=== PATIENT | male | born 1970 | race Caucasian/White ===

== ENCOUNTER 2018-02-07 20:46 | Inpatient (IN) | payer OTHER ==
[2018-02-07 21:38] VITALS: BMI 28.6
[2018-02-07] MEDS ORDERED: MELATONIN 5 MG TABLETS PO PRN (22:00)
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
[2018-02-07] MEDS ORDERED: guaiFENesin/D-METHORPHAN HB 10 ML UNIT-DOSE CUPS PO PRN (22:57)
[2018-02-07] MEDS ORDERED: MAGNESIUM HYDROX 2400MG/30ML ORAL SUSPENSION 30 ML CUP PO PRN (22:57)
[2018-02-07] MEDS ORDERED: LOPERAMIDE HCL 2 MG CAPSULE PO PRN (22:57)
[2018-02-07] MEDS ORDERED: IBUPROFEN 400 MG TABLET (FP) PO PRN (22:57)
[2018-02-07] MEDS ORDERED: chlordiazePOXIDE HCL 25 MG CAPSULE PO PRN (22:57)
[2018-02-07] MEDS ORDERED: P-EPHED 60MG/TRIPROLIDI 2.5MG TABLET PO PRN (22:57)
[2018-02-07] MEDS ORDERED: MENTHOL/PHENOL 1 EACH UD MM PRN (22:57)
[2018-02-07] MEDS ORDERED: MAG HYDROX/AL HYDROX/SIMETH 30 ML UNIT-DOSE CUP PO PRN (22:57)
[2018-02-07] MEDS ORDERED: MAGNESIUM CITRATE 300 ML BOTTLE PO PRN (22:57)
[2018-02-08] MEDS: chlordiazePOXIDE HCL 25 MG CAPSULE PO SCH ×5 (00:56→22:16)
[2018-02-08] MEDS: BACLOFEN 10 MG TABLET (FP) PO SCH ×3 (06:14→22:16)
[2018-02-08] MEDS ORDERED: levETIRAcetam 500 MG TABLET (FP) PO SCH (10:00)
[2018-02-08 10:45] LABS: HEMATOCRIT 35.7 % (35.4-49); MCH 31.3 pg (25.7-33.7); MCHC 33.6 g/dl (32.0-35.9); MEAN CELL VOLUME 93.4 fl (80-96); MEAN PLT VOLUME 8.1 fl (7.5-11.1); PLATELET COUNT 178 K/MM3 (134-434); RBC 3.82 M/mm3 (4.00-5.60); WHITE BLOOD COUNT 4.2 K/mm3 (4.0-10.0)
[2018-02-08] MEDS: NICOTINE 14 MG/24 HOURS TOPICAL PATCH TD SCH (10:51)
[2018-02-08] MEDS: PRENATAL VITAMINS W/ FOLIC ACID TABLET (FP) PO SCH (10:51)
[2018-02-08] MEDS: ACETAMINOPHEN 325 MG TABLET (FP) PO PRN (10:53)
[2018-02-08 11:05] LABS: ALBUMIN 3.4 g/dl (3.4-5.0); ANION GAP 8 (8-16); BLOOD UREA NITROGEN 15 mg/dL (7-18); CALCIUM 8.1 mg/dL (8.5-10.1); CHLORIDE 109 mmol/L (98-107); CO2 25 mmol/L (21-32); CREATININE 0.8 mg/dL (0.7-1.3); GLUCOSE,RANDOM 90 mg/dL (74-106); POTASSIUM 3.7 mmol/L (3.5-5.1); SGPT/ALT 20 U/L (12-78); SODIUM 142 mmol/L (136-145); TOT PROT 6.7 g/dl (6.4-8.2)
[2018-02-08 11:29] LABS: ALK PHOS 60 U/L (45-117); BILIRUBIN,TOTAL 0.2 mg/dL (0.2-1.0); SGOT/AST 18 U/L (15-37)
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
--- NOTE | 2018-02-08 14:48 | EKG ---
Test Reason : Blood Pressure : / mmHG Vent. Rate : 095 BPM Atrial Rate : 095 BPM P-R Int : 154 ms QRS Dur : 096 ms QT Int : 346 ms P-R-T Axes : 056 025 048 degrees QTc Int : 434 ms NORMAL SINUS RHYTHM NORMAL ECG WHEN COMPARED WITH ECG OF 21-DEC-2015 13:50, NO SIGNIFICANT CHANGE WAS FOUND Confirmed by MD Gross Daniel ([id number]) on 02/08/2018 2:48:08 PM Referred By: Confirmed By:Bg Gross MD
--- NOTE | 2018-02-08 15:16 | PN ---
S CIWA - CIWA Score Nausea/Vomitin-No Nausea/No Vomiting Muscle Tremors: None Anxiety: 3 Agitation: 4-Moderately Restless Paroxysmal Sweats: No Perspiration Orientation: 0-Oriented Tacttile Disturbances: 2-Mild Itch/Numbness/Burn Auditory Disturbances: 1-Very Mild Visual Disturbances: 2-Mild Sensitivity Headache: 3-Moderate CIWA-Ar Total Score: 15 S Progress Note (SOAP) Subjective: Body Aches, H/A, Fatigue, Interrupted Sleep. Objective: PATIENT A & O X 3, OBSERVED AMBULATING ON UNIT. NO ACUTE DISTRESS. 02/08/18 15:13 Vital Signs Temperature 98.4 F 02/08/18 13:53 Pulse Rate 84 02/08/18 14:00 Respiratory Rate 18 02/08/18 14:00 Blood Pressure 111/72 02/08/18 13:53 O2 Sat by Pulse Oximetry (%) Laboratory Tests 02/08/18 02/08/18 02/08/18 07:55 07:55 07:55 WBC 4.2 RBC 3.82 L Hgb 12.0 D Hct 35.7 D MCV 93.4 MCH 31.3 MCHC 33.6 RDW 14.0 Plt Count 178 MPV 8.1 Sodium 142 Potassium 3.7 Chloride 109 H Carbon Dioxide 25 Anion Gap 8 BUN 15 D Creatinine 0.8 D Creat Clearance w eGFR > 60 Random Glucose 90 Calcium 8.1 L Total Bilirubin 0.2 D AST 18 D ALT 20 D Alkaline Phosphatase 60 Total Protein 6.7 Albumin 3.4 RPR Titer Nonreactive LABS NOTED. UA RESULTS PENDING. 02/08/18 15:14 Assessment: 02/08/18 15:14 WITHDRAWAL SYMPTOMS. Plan: CONTINUE DETOX. INCREASE DAILY PO FLUID INTAKE. PATIENT REQUESTS TO BE DISCHARGE [facility] DETOX UNIT ON 02/10/2018, SO THAT HE CAN ATTEND TO [place] [employer]. AT PATIENT'S REQUEST, CURRENT DETOX MEDICATION REGIMEN MODIFIED SO THAT PATIENT MAY BE DISCHARGED ON 02/10/2018.
--- NOTE | 2018-02-08 15:21 | PN ---
[facility] Progress Note Note: ALTHOUGH KEPPRA WAS LISTED HOME MEDICATION ON ADMISSION, PATIENT REPORTS THAT HE HAS NOT TAKEN THIS MEDICATION FOR LAST APPROX. 1.5 YEARS AND THAT HE HAS NOT HAD A SEIZURE DURING THAT TIME. PATIENT REPORTS THAT MEDICATION WAS D/C' S BY OUTSIDE MEDICAL PROVIDER. PATIENT ADVISED TO FOLLOW-UP WITH MEDICAL PROVIDER DR. ROJAS ([facility] [place] AFTER DISCHARGE FROM DETOX UNIT FOR MEDICAL ASSESSMENT AND FOR HISTORY OF SEIZURES.
[2018-02-08] MEDS: NICOTINE POLACRILEX 2 MG GUM BC PRN ×2 (17:46→22:25)
[2018-02-08] MEDS: THIAMINE HCL 100 MG TABLET (FP) PO SCH (22:16)
[2018-02-08] MEDS: traZODone HCL 100 MG TABLET (FP) PO SCH (22:18)
[2018-02-08] MEDS ORDERED: chlordiazePOXIDE HCL 25 MG CAPSULE PO SCH (23:00)
[2018-02-09] MEDS: BACLOFEN 10 MG TABLET (FP) PO SCH ×3 (05:32→22:20)
[2018-02-09] MEDS: chlordiazePOXIDE 5 MG CAPSULE PO SCH ×2 (05:32→10:25)
[2018-02-09] MEDS: ACETAMINOPHEN 325 MG TABLET (FP) PO PRN ×2 (05:33→22:21)
[2018-02-09] MEDS: NICOTINE 14 MG/24 HOURS TOPICAL PATCH TD SCH (10:26)
[2018-02-09] MEDS: PRENATAL VITAMINS W/ FOLIC ACID TABLET (FP) PO SCH (10:26)
[2018-02-09] MEDS: NICOTINE POLACRILEX 2 MG GUM BC PRN ×4 (10:26→22:22)
--- NOTE | 2018-02-09 12:58 | PN ---
S CIWA - CIWA Score Nausea/Vomitin-No Nausea/No Vomiting Muscle Tremors: 3 Anxiety: 3 Agitation: 3 Paroxysmal Sweats: 1-Minimal Palms Moist Orientation: 0-Oriented Tacttile Disturbances: 0-None Auditory Disturbances: 0-None Visual Disturbances: 0-None Headache: 0-None Present CIWA-Ar Total Score: 10 BHS Progress Note (SOAP) Subjective: SLIGHT ANXIETY. ALERT O X 3. REPORTS DETOX PROCEEDING WELL. OOB WITH STEADY GAIT. Objective: 02/09/18 12:57 Vital Signs 02/09/18 02/09/18 06:14 09:51 Temperature 98.2 F 98.1 F Pulse Rate 72 79 Respiratory 20 18 Rate Blood Pressure 100/68 124/76 Laboratory Tests 02/08/18 02/08/18 02/08/18 07:55 07:55 07:55 WBC 4.2 RBC 3.82 L Hgb 12.0 D Hct 35.7 D MCV 93.4 MCH 31.3 MCHC 33.6 RDW 14.0 Plt Count 178 MPV 8.1 Sodium 142 Potassium 3.7 Chloride 109 H Carbon Dioxide 25 Anion Gap 8 BUN 15 D Creatinine 0.8 D Creat Clearance w eGFR > 60 Random Glucose 90 Calcium 8.1 L Total Bilirubin 0.2 D AST 18 D ALT 20 D Alkaline Phosphatase 60 Total Protein 6.7 Albumin 3.4 RPR Titer Nonreactive UA PENDING Assessment: 02/09/18 12:57 SLIGHT WITHDRAWAL SX Plan: CONTINUE DETOX.
[2018-02-09] MEDS: chlordiazePOXIDE HCL 10 MG CAPSULE PO SCH ×2 (17:27→22:20)
[2018-02-09] MEDS: traZODone HCL 100 MG TABLET (FP) PO SCH (22:20)
[2018-02-09] MEDS: THIAMINE HCL 100 MG TABLET (FP) PO SCH (22:20)
[2018-02-09] MEDS ORDERED: chlordiazePOXIDE 5 MG CAPSULE PO SCH (23:00)
[2018-02-10 06:21] VITALS: BP 107/71; PULSE 73; TEMP 97.3
[2018-02-10] MEDS: BACLOFEN 10 MG TABLET (FP) PO SCH (06:31)
[2018-02-10] MEDS: NICOTINE 14 MG/24 HOURS TOPICAL PATCH TD SCH (11:04)
[2018-02-10] MEDS: PRENATAL VITAMINS W/ FOLIC ACID TABLET (FP) PO SCH (11:04)
--- NOTE | 2018-02-10 11:41 | PN ---
S Progress Note (SOAP) Subjective: DETOX COMPLETED. ALERT O X 3. PT REPORTS PRIMARY CARE WITH DR. HEATHER WALSH AT [place]. Objective: 02/10/18 11:40 Vital Signs 02/10/18 02/10/18 06:21 06:30 Temperature 97.3 F L Pulse Rate 73 Respiratory 18 18 Rate Blood Pressure 107/71 Laboratory Tests 02/08/18 02/08/18 02/08/18 07:55 07:55 07:55 WBC 4.2 RBC 3.82 L Hgb 12.0 D Hct 35.7 D MCV 93.4 MCH 31.3 MCHC 33.6 RDW 14.0 Plt Count 178 MPV 8.1 Sodium 142 Potassium 3.7 Chloride 109 H Carbon Dioxide 25 Anion Gap 8 BUN 15 D Creatinine 0.8 D Creat Clearance w eGFR > 60 Random Glucose 90 Calcium 8.1 L Total Bilirubin 0.2 D AST 18 D ALT 20 D Alkaline Phosphatase 60 Total Protein 6.7 Albumin 3.4 RPR Titer Nonreactive OTHER LABS PENDING Assessment: 02/10/18 11:40 MEDICALLY STABLE Plan: D/C PT TODAY
--- NOTE | 2018-02-10 11:44 | DS ---
[facility] Detox Discharge Summary Admission Date: 02/07/18 Discharge Date: 02/10/18 - History Present History: Alcohol Dependence Additional Comments: DETOX COMPLETED. PT WILL FOLLOW UP WITHHIS MEDICAL MANAGEMENT WITH HIS PMD DRHEATHER IN [place], [place]. Pertinent Past History: PLEASE SEE DX BELOW - Physical Exam Results Vital Signs: Vital Signs Temperature 97.3 F L 02/10/18 06:21 Pulse Rate 73 02/10/18 06:21 Respiratory Rate 18 02/10/18 06:30 Blood Pressure 107/71 02/10/18 06:21 O2 Sat by Pulse Oximetry (%) Pertinent Admission Physical Exam Findings: WITHDRAWAL SX - Treatment Hospital Course: Detox Protocol Followed, Detoxed Safely, Responded well, Discharged Condition Good - Medication Discharge Medications: Ambulatory Orders traZODone HCL [Desyrel -] 100 mg PO HS #30 tablet 12/23/15 levETIRAcetam [Keppra -] 500 mg PO BID 08/27/16 Trazodone HCl 100 mg PO HS #30 tablet 08/28/16 Baclofen [Lioresal -] 10 mg PO TID 02/07/18 Gabapentin [Neurontin -] 400 mg PO TID 02/07/18 Lidocaine 1 each TP BID 02/07/18 Naproxen [Naprosyn -] 250 mg PO BID 02/07/18 - Diagnosis (1) Alcohol dependence with uncomplicated withdrawal Status: Acute (2) Nicotine dependence Status: Acute Qualifiers: Nicotine product type: cigarettes Substance use status: in withdrawal Qualified Code(s): F17.213 - Nicotine dependence, cigarettes, with withdrawal (3) Seizure disorder Status: Suspected - AMA Did Patient Leave Against Medical Advice: No
[2018-02-10] MEDS ORDERED: chlordiazePOXIDE HCL 10 MG CAPSULE PO SCH (23:00)
== END 2018-02-10 09:20 | disposition home or self-care (01) | DRG 775 ==
LOC: YASAS 20:46 → Y3N 21:40
PROVIDERS: ADMIT Surgery; ATTEND Surgery
PROC: HZ2ZZZZ Detoxification Services for Substance Abuse Treatment (ICD-10-PCS; principal; 2018-02-07)
DX: F10.230 Alcohol dependence with withdrawal, uncomplicated (principal); F17.213 Nicotine dependence, cigarettes, with withdrawal; F41.8 Other specified anxiety disorders; G40.909 Epilepsy, unspecified, not intractable, without status epilepticus; G47.30 Sleep apnea, unspecified; Z91.013 Allergy to seafood; Z91.011 Allergy to milk products
CPT/HCPCS: 36415; 80053; 85027; 86593; 93005; 93010; J0475

== ENCOUNTER 2018-08-06 14:46 | Inpatient (IN) | payer OTHER ==
[2018-08-06 17:20] VITALS: BMI 28.8
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
[2018-08-06] MEDS ORDERED: ACETAMINOPHEN 325 MG TABLET (FP) PO PRN (20:29)
[2018-08-06] MEDS ORDERED: guaiFENesin/D-METHORPHAN HB 10 ML UNIT-DOSE CUPS PO PRN (20:29)
[2018-08-06] MEDS ORDERED: LOPERAMIDE HCL 2 MG CAPSULE PO PRN (20:29)
[2018-08-06] MEDS ORDERED: MENTHOL/PHENOL 1 EACH UD MM PRN (20:29)
[2018-08-06] MEDS ORDERED: IBUPROFEN 400 MG TABLET (FP) PO PRN (20:29)
[2018-08-06] MEDS ORDERED: MAG HYDROX/AL HYDROX/SIMETH 30 ML UNIT-DOSE CUP PO PRN (20:29)
[2018-08-06] MEDS ORDERED: P-EPHED 60MG/TRIPROLIDI 2.5MG TABLET PO PRN (20:29)
[2018-08-06] MEDS ORDERED: MAGNESIUM CITRATE 300 ML BOTTLE PO PRN (20:29)
[2018-08-06] MEDS ORDERED: NICOTINE POLACRILEX 2 MG GUM BC PRN (20:29)
[2018-08-06] MEDS ORDERED: MAGNESIUM HYDROX 2400MG/30ML ORAL SUSPENSION 30 ML CUP PO PRN (20:29)
[2018-08-06] MEDS ORDERED: hydrOXYzine PAMOATE 50 MG CAPSULE (FP) PO PRN (20:29)
[2018-08-06] MEDS ORDERED: ONDANSETRON *ODT* 4 MG TABLET SL PRN (20:30)
[2018-08-06] MEDS ORDERED: cloNIDine HCL 0.1 MG TABLET PO ONE (20:45)
[2018-08-06] MEDS: chlordiazePOXIDE HCL 25 MG CAPSULE PO PRN (20:55)
[2018-08-06] MEDS ORDERED: MELATONIN 5 MG TABLETS PO PRN (22:00)
[2018-08-06] MEDS: THIAMINE HCL 100 MG TABLET (FP) PO SCH (22:32)
[2018-08-06] MEDS: chlordiazePOXIDE HCL 25 MG CAPSULE PO SCH (22:33)
[2018-08-07] MEDS: chlordiazePOXIDE HCL 25 MG CAPSULE PO PRN ×4 (03:10→20:02)
[2018-08-07] MEDS: chlordiazePOXIDE HCL 25 MG CAPSULE PO SCH ×4 (05:19→22:24)
[2018-08-07 10:12] LABS: HEMATOCRIT 40.7 % (35.4-49); HEMOGLOBIN 13.4 GM/dL (11.7-16.9); MEAN PLT VOLUME 8.3 fl (7.5-11.1); PLATELET COUNT 148 K/MM3 (134-434); RBC 4.33 M/mm3 (4.00-5.60); RDW 13.6 % (11.9-15.9); WHITE BLOOD COUNT 3.6 K/mm3 (4.0-10.0)
[2018-08-07] MEDS: PRENATAL VITAMINS W/ FOLIC ACID TABLET (FP) PO SCH (10:59)
[2018-08-07] MEDS: levETIRAcetam 500 MG TABLET (FP) PO SCH ×2 (11:00→22:24)
[2018-08-07 11:31] LABS: ALBUMIN 3.6 g/dl (3.4-5.0); ALK PHOS 59 U/L (45-117); ANION GAP 8 MMOL/L (8-16); BLOOD UREA NITROGEN 13 mg/dL (7-18); CALCIUM 8.8 mg/dL (8.5-10.1); CHLORIDE 101 mmol/L (98-107); CO2 30 mmol/L (21-32); CREATININE 0.7 mg/dL (0.55-1.3); GLUCOSE,RANDOM 83 mg/dL (74-106); POTASSIUM 3.6 mmol/L (3.5-5.1); SGOT/AST 63 U/L (15-37); SGPT/ALT 60 U/L (13-61); SODIUM 139 mmol/L (136-145); TOT PROT 6.8 g/dl (6.4-8.2)
[2018-08-07] MEDS: NAPROXEN 250 MG TABLET (FP) PO SCH ×2 (12:11→22:25)
[2018-08-07] MEDS: GABAPENTIN 400 MG CAPSULE (FP) PO SCH ×2 (14:08→22:24)
[2018-08-07] MEDS: BACLOFEN 10 MG TABLET (FP) PO SCH ×2 (14:08→22:24)
--- NOTE | 2018-08-07 15:53 | PN ---
[facility] CIWA - CIWA Score Nausea/Vomitin Muscle Tremors: 5 Anxiety: 4-Mod. Anxious/Guarded Agitation: 5 Paroxysmal Sweats: 2 Orientation: 1-Uncertain about Date Tacttile Disturbances: 1-Very Mild Itch/Numbness Auditory Disturbances: 0-None Visual Disturbances: 0-None Headache: 2-Mild CIWA-Ar Total Score: 22 S Progress Note (SOAP) Subjective: seizure episode last 2 years ago tremor sweat trouble sleep at night restlessness "doing better" after keppra, neurontin and baclofen Objective: 08/07/18 15:52 Vital Signs Temperature 99.0 F 08/07/18 13:47 Pulse Rate 75 08/07/18 15:31 Respiratory Rate 20 08/07/18 15:31 Blood Pressure 136/82 08/07/18 13:47 O2 Sat by Pulse Oximetry (%) Laboratory Last Values WBC 3.6 K/mm3 (4.0-10.0) L 08/07/18 07:00 RBC 4.33 M/mm3 (4.00-5.60) 08/07/18 07:00 Hgb 13.4 GM/dL (11.7-16.9) 08/07/18 07:00 Hct 40.7 % (35.4-49) 08/07/18 07:00 MCV 94.0 fl (80-96) 08/07/18 07:00 MCH 31.0 pg (25.7-33.7) 08/07/18 07:00 MCHC 33.0 g/dl (32.0-35.9) 08/07/18 07:00 RDW 13.6 % (11.9-15.9) 08/07/18 07:00 Plt Count 148 K/MM3 (134-434) 08/07/18 07:00 MPV 8.3 fl (7.5-11.1) 08/07/18 07:00 Sodium 139 mmol/L (136-145) 08/07/18 07:00 Potassium 3.6 mmol/L (3.5-5.1) 08/07/18 07:00 Chloride 101 mmol/L (98-107) 08/07/18 07:00 Carbon Dioxide 30 mmol/L (21-32) 08/07/18 07:00 Anion Gap 8 MMOL/L (8-16) 08/07/18 07:00 BUN 13 mg/dL (7-18) 08/07/18 07:00 Creatinine 0.7 mg/dL (0.55-1.3) 08/07/18 07:00 Creat Clearance w eGFR > 60 (>60) 08/07/18 07:00 Random Glucose 83 mg/dL (74-106) 08/07/18 07:00 Calcium 8.8 mg/dL (8.5-10.1) 08/07/18 07:00 Total Bilirubin 1.0 mg/dL (0.2-1) 08/07/18 07:00 AST 63 U/L (15-37) H 08/07/18 07:00 ALT 60 U/L (13-61) 08/07/18 07:00 Alkaline Phosphatase 59 U/L (45-117) 08/07/18 07:00 Total Protein 6.8 g/dl (6.4-8.2) 08/07/18 07:00 Albumin 3.6 g/dl (3.4-5.0) 08/07/18 07:00 lab noted Assessment: 08/07/18 15:53 withdrawal sx Plan: continue detox
[2018-08-07] MEDS: THIAMINE HCL 100 MG TABLET (FP) PO SCH (22:23)
[2018-08-08] MEDS: chlordiazePOXIDE HCL 25 MG CAPSULE PO SCH ×3 (05:35→17:15)
[2018-08-08] MEDS: GABAPENTIN 400 MG CAPSULE (FP) PO SCH ×3 (06:24→22:11)
[2018-08-08] MEDS: BACLOFEN 10 MG TABLET (FP) PO SCH ×3 (06:24→22:11)
[2018-08-08] MEDS: levETIRAcetam 500 MG TABLET (FP) PO SCH ×2 (10:19→22:11)
[2018-08-08] MEDS: NAPROXEN 250 MG TABLET (FP) PO SCH ×2 (10:19→22:10)
[2018-08-08] MEDS: PRENATAL VITAMINS W/ FOLIC ACID TABLET (FP) PO SCH (10:19)
[2018-08-08] MEDS ORDERED: chlordiazePOXIDE HCL 25 MG CAPSULE PO ONE (11:20)
--- NOTE | 2018-08-08 14:23 | PN ---
S CIWA - CIWA Score Nausea/Vomitin Muscle Tremors: 3 Anxiety: 3 Agitation: 3 Paroxysmal Sweats: No Perspiration Orientation: 1-Uncertain about Date Tacttile Disturbances: 0-None Auditory Disturbances: 0-None Visual Disturbances: 0-None Headache: 0-None Present CIWA-Ar Total Score: 12 [facility] Progress Note (SOAP) Subjective: PATIENT UPON INITIAL EVALUATION C/O SHAKES, BODY ACHES, NAUSEA/DIARRHEA. ORIENTED TO NAME AND PLACE, UNSURE OF DATE. LATER DURING THE DAY, RN STATED PATIENT BECAME DISORIENTED TO HIS SURROUNDINGS, ANXIOUS AND RESTLESS. Objective: 08/08/18 14:20 Vital Signs Temperature 95.7 F L 08/08/18 13:50 Pulse Rate 82 08/08/18 13:50 Respiratory Rate 18 08/08/18 13:50 Blood Pressure 129/87 08/08/18 13:50 O2 Sat by Pulse Oximetry (%) Laboratory Tests 08/07/18 08/07/18 08/07/18 07:00 07:00 07:00 WBC 3.6 L RBC 4.33 Hgb 13.4 Hct 40.7 MCV 94.0 MCH 31.0 MCHC 33.0 RDW 13.6 Plt Count 148 MPV 8.3 Sodium 139 Potassium 3.6 Chloride 101 Carbon Dioxide 30 Anion Gap 8 BUN 13 Creatinine 0.7 Creat Clearance w eGFR > 60 Random Glucose 83 Calcium 8.8 Total Bilirubin 1.0 AST 63 H ALT 60 Alkaline Phosphatase 59 Ammonia Total Protein 6.8 Albumin 3.6 RPR Titer Nonreactive 08/08/18 11:15 WBC RBC Hgb Hct MCV MCH MCHC RDW Plt Count MPV Sodium Potassium Chloride Carbon Dioxide Anion Gap BUN Creatinine Creat Clearance w eGFR Random Glucose Calcium Total Bilirubin AST ALT Alkaline Phosphatase Ammonia 44.70 H Total Protein Albumin RPR Titer PE: ALERT AND ORIENTED TO NAME, UNABLE TO PROVIDE YEAR/NAME OF HOSPITAL SKIN WARM, +FACIAL FLUSHING CAR S1S2 RESP CTA BL EXT +TREMORS AMB AD LOBO ANXIOUS Assessment: 08/08/18 14:22 WITHDRAWAL SX CONFUSION POSSIBLY ELEVATED AMMONIA LEVEL Plan: CONTINUE DETOX EXTRA DOSE OF LIBRIUM 25MG X ONE GIVEN ENCOURAGE ORAL FLUIDS AMMONIA LEVEL ORDERED AND RESULTS 44.7 LACTULOSE 20GM BID ORDERED REPEAT LEVEL ON 08/10/18
[2018-08-08] MEDS: chlordiazePOXIDE HCL 25 MG CAPSULE PO PRN (15:22)
[2018-08-08] MEDS: THIAMINE HCL 100 MG TABLET (FP) PO SCH (22:10)
[2018-08-08] MEDS: LACTULOSE 20 GM/30 ML UDC (FOR ORAL USE ONLY) PO SCH (22:10)
[2018-08-08] MEDS: chlordiazePOXIDE 5 MG CAPSULE PO SCH (22:11)
[2018-08-09] MEDS: chlordiazePOXIDE 5 MG CAPSULE PO SCH ×2 (04:45→10:27)
[2018-08-09] MEDS: GABAPENTIN 400 MG CAPSULE (FP) PO SCH ×2 (05:36→14:03)
[2018-08-09] MEDS: BACLOFEN 10 MG TABLET (FP) PO SCH ×2 (05:36→14:03)
[2018-08-09] MEDS: levETIRAcetam 500 MG TABLET (FP) PO SCH (10:27)
[2018-08-09] MEDS: PRENATAL VITAMINS W/ FOLIC ACID TABLET (FP) PO SCH (10:27)
[2018-08-09] MEDS: NAPROXEN 250 MG TABLET (FP) PO SCH (10:27)
[2018-08-09] MEDS: LACTULOSE 20 GM/30 ML UDC (FOR ORAL USE ONLY) PO SCH (10:28)
--- NOTE | 2018-08-09 11:21 | PN ---
[facility] Progress Note (SOAP) Subjective: ALERT O X 3. OOB WITH STEADY GAIT. DENIES ANY DISCOMFORT. Objective: 08/09/18 12:31 Vital Signs 08/09/18 08/09/18 06:18 09:48 Temperature 97.4 F L 96.9 F L Pulse Rate 71 80 Respiratory 20 18 Rate Blood Pressure 113/72 118/77 Laboratory Tests 08/07/18 08/07/18 08/07/18 07:00 07:00 07:00 WBC 3.6 L RBC 4.33 Hgb 13.4 Hct 40.7 MCV 94.0 MCH 31.0 MCHC 33.0 RDW 13.6 Plt Count 148 MPV 8.3 Sodium 139 Potassium 3.6 Chloride 101 Carbon Dioxide 30 Anion Gap 8 BUN 13 Creatinine 0.7 Creat Clearance w eGFR > 60 Random Glucose 83 Calcium 8.8 Total Bilirubin 1.0 AST 63 H ALT 60 Alkaline Phosphatase 59 Ammonia Total Protein 6.8 Albumin 3.6 RPR Titer Nonreactive 08/08/18 11:15 WBC RBC Hgb Hct MCV MCH MCHC RDW Plt Count MPV Sodium Potassium Chloride Carbon Dioxide Anion Gap BUN Creatinine Creat Clearance w eGFR Random Glucose Calcium Total Bilirubin AST ALT Alkaline Phosphatase Ammonia 44.70 H Total Protein Albumin RPR Titer Assessment: 08/09/18 12:31 W/S NAD Plan: CONTINUE DETOX INCREASE PO FLUIDS
[2018-08-09 14:15] VITALS: BP 138/96; PULSE 92; TEMP 98.2
--- NOTE | 2018-08-09 14:57 | PN ---
[facility] Progress Note Note: called by nurse patient did not want to complete treatment,stated he hs to leave today,seen by counselor, did not want to wait,signed release ama,stated will follow up with aa meeting, out patient program, advise follow up with family physician for medical problem or to er if emergency medical problem
--- NOTE | 2018-08-09 15:02 | DS ---
[facility] Detox Discharge Summary Admission Date: 08/06/18 Discharge Date: 08/09/18 - History Present History: Alcohol Dependence Pertinent Past History: arthritis high ammonia level nicotine dependence - Physical Exam Results Vital Signs: Vital Signs Temperature 98.2 F 08/09/18 14:15 Pulse Rate 92 H 08/09/18 14:15 Respiratory Rate 16 08/09/18 14:15 Blood Pressure 138/96 08/09/18 14:15 O2 Sat by Pulse Oximetry (%) Pertinent Admission Physical Exam Findings: withdrawal signs and symptom Vital Signs Temperature 98.2 F 08/09/18 14:15 Pulse Rate 92 H 08/09/18 14:15 Respiratory Rate 16 08/09/18 14:15 Blood Pressure 138/96 08/09/18 14:15 O2 Sat by Pulse Oximetry (%) Laboratory Last Values WBC 3.6 K/mm3 (4.0-10.0) L 08/07/18 07:00 RBC 4.33 M/mm3 (4.00-5.60) 08/07/18 07:00 Hgb 13.4 GM/dL (11.7-16.9) 08/07/18 07:00 Hct 40.7 % (35.4-49) 08/07/18 07:00 MCV 94.0 fl (80-96) 08/07/18 07:00 MCH 31.0 pg (25.7-33.7) 08/07/18 07:00 MCHC 33.0 g/dl (32.0-35.9) 08/07/18 07:00 RDW 13.6 % (11.9-15.9) 08/07/18 07:00 Plt Count 148 K/MM3 (134-434) 08/07/18 07:00 MPV 8.3 fl (7.5-11.1) 08/07/18 07:00 Sodium 139 mmol/L (136-145) 08/07/18 07:00 Potassium 3.6 mmol/L (3.5-5.1) 08/07/18 07:00 Chloride 101 mmol/L (98-107) 08/07/18 07:00 Carbon Dioxide 30 mmol/L (21-32) 08/07/18 07:00 Anion Gap 8 MMOL/L (8-16) 08/07/18 07:00 BUN 13 mg/dL (7-18) 08/07/18 07:00 Creatinine 0.7 mg/dL (0.55-1.3) 08/07/18 07:00 Creat Clearance w eGFR > 60 (>60) 08/07/18 07:00 Random Glucose 83 mg/dL (74-106) 08/07/18 07:00 Calcium 8.8 mg/dL (8.5-10.1) 08/07/18 07:00 Total Bilirubin 1.0 mg/dL (0.2-1) 08/07/18 07:00 AST 63 U/L (15-37) H 08/07/18 07:00 ALT 60 U/L (13-61) 08/07/18 07:00 Alkaline Phosphatase 59 U/L (45-117) 08/07/18 07:00 Ammonia 44.70 umol/L (11-32) H 08/08/18 11:15 Total Protein 6.8 g/dl (6.4-8.2) 08/07/18 07:00 Albumin 3.6 g/dl (3.4-5.0) 08/07/18 07:00 RPR Titer Nonreactive (NONREACTIVE) 08/07/18 07:00 - Medication Discharge Medications: Ambulatory Orders traZODone HCL [Desyrel -] 100 mg PO HS #30 tablet 12/23/15 levETIRAcetam [Keppra -] 500 mg PO BID 08/27/16 traZODone HCL [Trazodone HCl] 100 mg PO HS #30 tablet 08/28/16 Baclofen [Lioresal -] 10 mg PO TID 02/07/18 Gabapentin [Neurontin -] 400 mg PO TID 02/07/18 Lidocaine 1 each TP BID 02/07/18 Naproxen [Naprosyn -] 250 mg PO BID 02/07/18 - AMA Did Patient Leave Against Medical Advice: Yes
[2018-08-09] MEDS ORDERED: chlordiazePOXIDE HCL 10 MG CAPSULE PO SCH (23:00)
== END 2018-08-09 14:18 | disposition left against medical advice (07) | DRG 770 ==
LOC: YASAS 14:46 → Y3N 20:23
PROC: HZ2ZZZZ Detoxification Services for Substance Abuse Treatment (ICD-10-PCS; principal; 2018-08-06)
DX: F10.231 Alcohol dependence with withdrawal delirium (principal); F17.210 Nicotine dependence, cigarettes, uncomplicated; F33.9 Major depressive disorder, recurrent, unspecified; F19.24 Other psychoactive substance dependence with psychoactive substance-induced mood disorder; F43.10 Post-traumatic stress disorder, unspecified; R55 Syncope and collapse; G40.909 Epilepsy, unspecified, not intractable, without status epilepticus; M12.9 Arthropathy, unspecified; E72.20 Disorder of urea cycle metabolism, unspecified; Z91.89 Other specified personal risk factors, not elsewhere classified
CPT/HCPCS: 36415; 80053; 82140; 85027; 86593; J0475; J0735

== ENCOUNTER 2021-12-12 15:46 | Inpatient (IN) | payer OTHER ==
[2021-12-12] MEDS ORDERED: chlordiazePOXIDE HCL 25 MG CAPSULE PO ONE (19:20)
[2021-12-12] MEDS ORDERED: chlordiazePOXIDE HCL 25 MG CAPSULE PO PRN (19:20)
[2021-12-12] MEDS ORDERED: ACETAMINOPHEN 325 MG TABLET (FP) PO PRN (19:21)
[2021-12-12] MEDS ORDERED: METHOCARBAMOL 500 MG TABLET PO PRN (19:21)
[2021-12-12] MEDS ORDERED: MELATONIN 5 MG TABLETS PO PRN (19:21)
[2021-12-12] MEDS ORDERED: DICYCLOMINE HCL 10 MG CAPSULE PO PRN (19:21)
[2021-12-12] MEDS ORDERED: hydrOXYzine PAMOATE 25 MG CAPSULE (FP) PO PRN (19:21)
[2021-12-12] MEDS ORDERED: BENZOCAINE/MENTHOL (CHLORASEPTIC ) LOZENGE MM PRN (19:21)
[2021-12-12] MEDS ORDERED: IBUPROFEN 400 MG TABLET (FP) PO PRN (19:21)
[2021-12-12] MEDS ORDERED: MAGNESIUM CITRATE 300 ML BOTTLE PO PRN (19:21)
[2021-12-12] MEDS ORDERED: BISMUTH SUBSALICYLATE 524 MG/30 ML PO PRN (19:21)
[2021-12-12] MEDS ORDERED: LOPERAMIDE HCL 2 MG CAPSULE PO PRN (19:21)
[2021-12-12] MEDS ORDERED: MAGNESIUM HYDROX 2400MG/30ML ORAL SUSPENSION 30 ML CUP PO PRN (19:21)
[2021-12-12] MEDS ORDERED: METOPROLOL TARTRATE 25 MG TABLET (FP) PO ONE (19:21)
[2021-12-12] MEDS ORDERED: MAG HYDROX/AL HYDROX/SIMETH 30 ML UNIT-DOSE CUP PO PRN (19:21)
[2021-12-12] MEDS ORDERED: ONDANSETRON *ODT* 4 MG TABLET SL PRN (19:21)
[2021-12-12] MEDS ORDERED: chlordiazePOXIDE HCL 25 MG CAPSULE ONE (20:56)
[2021-12-12] MEDS ORDERED: METOPROLOL TARTRATE 25 MG TABLET (FP) ONE (20:57)
[2021-12-12 21:05] VITALS: BMI 24.0
[2021-12-12] MEDS ORDERED: ACETAMINOPHEN 325 MG TABLET (FP) ONE (21:25)
[2021-12-12] MEDS: THIAMINE HCL 100 MG TABLET (FP) PO SCH (22:48)
[2021-12-12] MEDS: chlordiazePOXIDE HCL 25 MG CAPSULE PO SCH (22:51)
[2021-12-12] MEDS: levETIRAcetam 500 MG TABLET (FP) PO SCH (22:51)
[2021-12-13] MEDS: chlordiazePOXIDE HCL 25 MG CAPSULE PO SCH ×4 (05:26→22:45)
[2021-12-13] MEDS: ACETAMINOPHEN 325 MG TABLET (FP) PO PRN ×2 (05:28→11:35)
[2021-12-13] MEDS ORDERED: PRENATAL VITAMINS W/ FOLIC ACID TABLET (FP) PO SCH (10:00)
[2021-12-13 10:49] LABS: CHLORIDE 86 mmol/L (98-107); SODIUM 133 mmol/L (136-145)
[2021-12-13 10:54] LABS: HEMATOCRIT 32.1 % (35.4-49); HEMOGLOBIN 11.2 GM/dL (11.7-16.9); MCH 34.2 pg (25.7-33.7); MCHC 34.8 g/dl (32.0-35.9); MEAN CELL VOLUME 98.1 fl (80-96); MEAN PLT VOLUME 8.3 fl (7.5-11.1); PLATELET COUNT 57 10^3/uL (134-434); RBC 3.28 M/mm3 (4.00-5.60); WHITE BLOOD COUNT 3.5 K/mm3 (4.0-10.0)
[2021-12-13 10:58] LABS: ALBUMIN 3.4 g/dl (3.4-5.0); BLOOD UREA NITROGEN 10.3 mg/dL (7-18); CO2 36 mmol/L (21-32); GLUCOSE,RANDOM 106 mg/dL (74-106)
[2021-12-13 11:01] LABS: CREATININE 0.7 mg/dL (0.55-1.3); SGOT/AST 163 U/L (15-37); SGPT/ALT 54 U/L (13-61)
[2021-12-13 11:03] LABS: BILIRUBIN,TOTAL 2.2 mg/dL (0.2-1); TOT PROT 6.7 g/dl (6.4-8.2)
[2021-12-13 11:04] LABS: ALK PHOS 102 U/L (45-117)
[2021-12-13 11:27] LABS: ANION GAP 11 MMOL/L (8-16)
[2021-12-13] MEDS: levETIRAcetam 500 MG TABLET (FP) PO SCH ×2 (11:34→22:44)
[2021-12-13] MEDS ORDERED: POTASSIUM CHLORIDE ORAL LIQUID 20 MEQ/15 ML PO ONE (11:40)
[2021-12-13 12:44] VITALS: BP 110/81; PULSE 118; TEMP 96.9
[2021-12-13] MEDS: THIAMINE HCL 100 MG TABLET (FP) PO SCH (22:44)
[2021-12-14] MEDS ORDERED: chlordiazePOXIDE HCL 25 MG CAPSULE PO SCH (05:00)
[2021-12-14 14:08] LABS: SARS-CoV-2 NAA Not Detected (Not Detected)
[2021-12-15] MEDS ORDERED: chlordiazePOXIDE HCL 10 MG CAPSULE PO PRN
[2021-12-15] MEDS ORDERED: chlordiazePOXIDE HCL 10 MG CAPSULE PO SCH (05:00)
== END 2021-12-14 00:03 | disposition short-term general hospital (02) | DRG 775 ==
LOC: YASAS 15:46 → Y3N 21:07
PROVIDERS: ADMIT Allergy & Immunology; ATTEND Allergy & Immunology
PROC: HZ2ZZZZ Detoxification Services for Substance Abuse Treatment (ICD-10-PCS; principal; 2021-12-12)
DX: F10.230 Alcohol dependence with withdrawal, uncomplicated (principal); F10.220 Alcohol dependence with intoxication, uncomplicated; F17.210 Nicotine dependence, cigarettes, uncomplicated; M54.50 Low back pain, unspecified; G89.29 Other chronic pain; R79.89 Other specified abnormal findings of blood chemistry; R26.89 Other abnormalities of gait and mobility
CPT/HCPCS: 36415; 80053; 85027; 86780; 87811; C9803-CS; Q0162; U0003; U0005

== ENCOUNTER 2021-12-13 12:44 | Inpatient (IN) | payer OTHER ==
[2021-12-13 13:00] VITALS: BMI 25.8
[2021-12-13] MEDS ORDERED: ACETAMINOPHEN 1000 MG/100 ML BAG IVPB ONE (13:21)
[2021-12-13] MEDS ORDERED: SODIUM CHLORIDE 0.9% 500 ML INFUS.BAG IV ONE ×2 (13:21→15:24)
[2021-12-13] MEDS ORDERED: ACETAMINOPHEN INJECTION 100 ML IVPB ONE (13:34)
[2021-12-13] MEDS ORDERED: morphine CARPU-JECT 4 MG/1 ML DISP.SYRIN IVPUSH ONE ×2 (14:55→19:39)
[2021-12-13] MEDS ORDERED: morphine SULFATE 4 MG/ML VIAL ONE ×2 (14:56→19:42)
[2021-12-13 15:08] LABS: ACTIVATED PTT 18.6 SECONDS (25.2-36.5); INR 1.09 (0.83-1.09); PROTHROMBIN TIME (PATIENT) 12.5 SEC (9.7-13.0)
[2021-12-13 15:12] LABS: LACTIC ACID 2.3 mmol/L (0.4-2.0)
[2021-12-13 15:15] LABS: CHLORIDE 89 mmol/L (98-107); SODIUM 135 mmol/L (136-145)
[2021-12-13 15:19] LABS: ALBUMIN 3.4 g/dl (3.4-5.0); CALCIUM 9.5 mg/dL (8.5-10.1); CO2 35 mmol/L (21-32); GLUCOSE,RANDOM 111 mg/dL (74-106); LIPASE 722 U/L (73-393); MAGNESIUM 1.3 mg/dL (1.8-2.4)
[2021-12-13 15:22] LABS: CREATININE 0.8 mg/dL (0.55-1.3); SGOT/AST 231 U/L (15-37); SGPT/ALT 61 U/L (13-61)
[2021-12-13 15:23] LABS: TOT PROT 6.8 g/dl (6.4-8.2)
[2021-12-13 15:24] LABS: BILIRUBIN,TOTAL 2.5 mg/dL (0.2-1)
[2021-12-13] MEDS ORDERED: MAGNESIUM SULF 50% (8.12 MEQ/2 ML-1 GM VIAL) IVPB ONE (15:24)
[2021-12-13 15:25] LABS: ALK PHOS 112 U/L (45-117)
[2021-12-13 15:31] LABS: ANION GAP 11 MMOL/L (8-16)
[2021-12-13 15:39] LABS: RBC 2.98 M/mm3 (4.00-5.60); WHITE BLOOD COUNT 2.8 K/mm3 (4.0-10.0)
[2021-12-13 15:40] LABS: BASO % 0.8 % (0-2.0); EOS % 0.3 % (0-4.5); LYMPH % 18.2 % (8-40); MCH 33.6 pg (25.7-33.7); MCHC 34.6 g/dl (32.0-35.9); MEAN CELL VOLUME 97.1 fl (80-96); MEAN PLT VOLUME 8.1 fl (7.5-11.1); MONO % 8.7 % (3.8-10.2); PLATELET COUNT 49 10^3/uL (134-434); RDW 14.8 % (11.9-15.9)
[2021-12-13] MEDS ORDERED: MAGNESIUM SULFATE IN WATER 2 GM/50 ML IVPB IVPB ONE (15:42)
[2021-12-13] MEDS ORDERED: POTASSIUM CHLORIDE 20 MEQ PREMIX IVPB 100 ML IVPB ONE (15:47)
[2021-12-13 17:16] LABS: HIV INTERPRETATION NEGATIVE (NEGATIVE)
[2021-12-13] MEDS ORDERED: CIPROFLOXACIN 400 MG/D5W 400 MG/200 ML IVPB IVPB ONE (17:30)
[2021-12-13] MEDS ORDERED: KCL 10 MEQ IVPB 10 MEQ/100 ML INFUS.BAG IVPB ONE (17:46)
[2021-12-13] MEDS: KCL 10 MEQ IVPB 10 MEQ/100 ML INFUS.BAG IVPB SCH (17:51)
[2021-12-13 18:43] LABS: URINE APPEARANCE CLEAR; URINE BILIRUBIN NEGATIVE (NEGATIVE); URINE COLOR YELLOW; URINE GLUCOSE (UA) NEGATIVE (NEGATIVE); URINE KETONE NEGATIVE (NEGATIVE); URINE LEUK ESTERASE NEGATIVE (NEGATIVE); URINE NITRITE NEGATIVE (NEGATIVE); URINE PROTEIN NEGATIVE (NEGATIVE); URINE UROBILINOGEN 4.0 E.U/dl mg/dL (0.2-1.0)
[2021-12-13] MEDS ORDERED: POTASSIUM CHLORIDE ORAL LIQUID 20 MEQ/15 ML PO ONE (19:08)
[2021-12-13] MEDS ORDERED: POTASSIUM CHLORIDE ORAL LIQUID 20 MEQ/15 ML ONE (19:42)
[2021-12-13 20:00] LABS: COCAINE, UR NEGATIVE (NEGATIVE); PHENCYCLIDINE,URINE NEGATIVE (NEGATIVE); URINE BARBITURATES NEGATIVE (NEGATIVE)
[2021-12-13 20:01] LABS: METHADONE, UR NEGATIVE (NEGATIVE)
[2021-12-13 20:17] LABS: OPIATES, URI POSITIVE (NEGATIVE); URINE AMPHETAMINES NEGATIVE (NEGATIVE); URINE BENZODIAZEPINES POSITIVE (NEGATIVE)
[2021-12-13] MEDS ORDERED: LACTATED RINGERS SOLUTION 1,000 ML/1,000 ML INFUS.BAG IV SCH (20:45)
[2021-12-13] MEDS ORDERED: LORazepam 1 MG TABLET PO PRN (20:50)
[2021-12-13] MEDS ORDERED: FOLIC ACID INJECTION - 1 MG, THIAMINE HCL 100 MG, MULTIVIT INJECTION ADULT 10 ML in SOD... IVPB ONE (21:39)
[2021-12-13 22:03] LABS: BILIRUBIN,DIRECT 1.2 mg/dL (0.0-0.2); IRON SERUM 189 ug/dL (50-175)
[2021-12-13 22:04] LABS: PHOSPHOROUS 2.5 mg/dL (2.5-4.9); TOTAL IRON BINDING CAPACITY 190 ug/dL (250-450)
[2021-12-13] MEDS ORDERED: levETIRAcetam 500 MG TABLET (FP) PO ONE (22:10)
[2021-12-13] MEDS ORDERED: LORazepam 1 MG TABLET ONE (22:11)
[2021-12-13] MEDS ORDERED: BACLOFEN 10 MG TABLET (FP) ONE (22:11)
[2021-12-13] MEDS ORDERED: GABAPENTIN 300 MG CAPSULE ONE (22:12)
[2021-12-13] MEDS ORDERED: ENOXAPARIN NA (PORCINE) 40 MG/0.4 ML DISP.SYRIN SQ ONE (22:12)
[2021-12-13] MEDS: levETIRAcetam 500 MG TABLET (FP) PO SCH (22:17)
[2021-12-13] MEDS: BACLOFEN 10 MG TABLET (FP) PO SCH (22:17)
[2021-12-13] MEDS: GABAPENTIN 300 MG CAPSULE PO SCH (22:17)
[2021-12-13] MEDS: ENOXAPARIN NA (PORCINE) 40 MG/0.4 ML DISP.SYRIN SQ SCH (22:31)
[2021-12-13] MEDS ORDERED: KETOROLAC TROMETHAMINE 30 MG/1 ML VIAL IVPUSH ONE (22:35)
[2021-12-13] MEDS ORDERED: KETOROLAC TROMETHAMINE 30 MG/1 ML VIAL ONE (22:56)
[2021-12-13] MEDS ORDERED: LORazepam 1 MG TABLET PO SCH (23:00)
[2021-12-13] MEDS: PIPERACILLIN/TAZOB 3.375 GM 3.375 GM in DEXTROSE 5%-WATER - 50 ML IVPB SCH (23:02)
[2021-12-14] MEDS ORDERED: PIPERACILLIN/TAZOBACTAM 3.375 GM VIAL IVPB ONE ×2 (03:04→10:09)
[2021-12-14] MEDS ORDERED: DEXTROSE 5%-WATER - 50 ML IVPB ONE ×2 (03:04→10:09)
[2021-12-14] MEDS: PIPERACILLIN/TAZOB 3.375 GM 3.375 GM in DEXTROSE 5%-WATER - 50 ML IVPB SCH ×5 (03:22→20:44)
[2021-12-14] MEDS: KCL 10 MEQ IVPB 10 MEQ/100 ML INFUS.BAG IVPB SCH ×3 (04:31→06:23)
[2021-12-14 04:51] LABS: AMYLASE 255 U/L (25-115); LIPASE 496 U/L (73-393)
[2021-12-14 04:55] LABS: LDH 193 U/L (87-246)
[2021-12-14] MEDS: BACLOFEN 10 MG TABLET (FP) PO SCH ×3 (05:35→21:16)
[2021-12-14] MEDS: GABAPENTIN 300 MG CAPSULE PO SCH ×3 (05:35→21:16)
[2021-12-14] MEDS: LORazepam 2 MG/ML SDV VIAL IVPUSH PRN ×2 (05:35→21:17)
[2021-12-14 07:07] LABS: BASO % 1.2 % (0-2.0); EOS % 1.9 % (0-4.5); HEMATOCRIT 26.3 % (35.4-49); HEMOGLOBIN 9.1 GM/dL (11.7-16.9); LYMPH % 42.7 % (8-40); MCH 33.8 pg (25.7-33.7); MCHC 34.4 g/dl (32.0-35.9); MEAN CELL VOLUME 98.3 fl (80-96); MEAN PLT VOLUME 8.8 fl (7.5-11.1); MONO % 8.4 % (3.8-10.2); NEUT % 45.8 % (42.8-82.8); PLATELET COUNT 49 10^3/uL (134-434); RBC 2.68 M/mm3 (4.00-5.60); RDW 14.9 % (11.9-15.9)
[2021-12-14 07:27] LABS: CHLORIDE 99 mmol/L (98-107); SODIUM 139 mmol/L (136-145)
[2021-12-14 07:35] LABS: AMYLASE 210 U/L (25-115); BLOOD UREA NITROGEN 10.4 mg/dL (7-18); CO2 32 mmol/L (21-32); GLUCOSE,RANDOM 119 mg/dL (74-106); LIPASE 439 U/L (73-393)
[2021-12-14 07:36] LABS: MAGNESIUM 1.4 mg/dL (1.8-2.4)
[2021-12-14 07:37] LABS: CREATININE 0.8 mg/dL (0.55-1.3); SGOT/AST 135 U/L (15-37)
[2021-12-14 07:38] LABS: PHOSPHOROUS 1.9 mg/dL (2.5-4.9); SGPT/ALT 46 U/L (13-61)
[2021-12-14 07:40] LABS: BILIRUBIN,TOTAL 1.8 mg/dL (0.2-1); TOT PROT 5.4 g/dl (6.4-8.2)
[2021-12-14 08:00] LABS: ALBUMIN 2.5 g/dl (3.4-5.0); ALK PHOS 78 U/L (45-117); ANION GAP 8 MMOL/L (8-16)
[2021-12-14] MEDS ORDERED: POTASSIUM CHLORIDE ORAL LIQUID 20 MEQ/15 ML PO ONE (09:30)
[2021-12-14] MEDS ORDERED: MAGNESIUM 2GM/50ML STERILE WATER IVPB IVPB ONE (10:00)
[2021-12-14] MEDS: levETIRAcetam 500 MG TABLET (FP) PO SCH ×2 (10:46→21:16)
[2021-12-14] MEDS: ENOXAPARIN NA (PORCINE) 40 MG/0.4 ML DISP.SYRIN SQ SCH (10:56)
[2021-12-14 11:30] LABS: CALCIUM 8.7 mg/dL (8.5-10.1)
[2021-12-14 11:31] LABS: BLOOD UREA NITROGEN 8.8 mg/dL (7-18)
[2021-12-14 11:34] LABS: CREATININE 0.7 mg/dL (0.55-1.3); MAGNESIUM 1.6 mg/dL (1.8-2.4); PHOSPHOROUS 2.3 mg/dL (2.5-4.9)
[2021-12-14 11:36] LABS: TRIGLYCERIDES 97 mg/dL (0-150)
[2021-12-14] MEDS ORDERED: SODIUM PHOSPHATE - 30 MM in SODIUM CHLORIDE 500 ML IVPB ONE (12:00)
[2021-12-14] MEDS ORDERED: LORazepam 1 MG TABLET PO PRN (12:28)
[2021-12-14] MEDS ORDERED: DEXTROSE 5%-WATER 100 ML IVPB ONE (12:36)
[2021-12-14] MEDS: CEFTRIAXONE 2 GM in DEXTROSE 5%-WATER 2 GM/100 ML BAG IVPB SCH (12:42)
[2021-12-14] MEDS ORDERED: LORazepam 1 MG TABLET PO ONE (13:00)
[2021-12-14] MEDS: LORazepam 1 MG TABLET PO SCH ×3 (13:04→22:10)
[2021-12-14 13:15] LABS: RETICULOCYTES 0.33 % (0.5-1.5)
[2021-12-14] MEDS: LACTATED RINGERS SOLUTION 1,000 ML with POTASSIUM CHLORIDE 20 MEQ IV SCH ×2 (17:04→18:50)
[2021-12-14 22:08] LABS: CALCIUM 8.4 mg/dL (8.5-10.1)
[2021-12-14 22:09] LABS: BLOOD UREA NITROGEN 7.3 mg/dL (7-18); MAGNESIUM 1.7 mg/dL (1.8-2.4)
[2021-12-14 22:12] LABS: PHOSPHOROUS 2.4 mg/dL (2.5-4.9)
[2021-12-14 22:13] LABS: CREATININE 0.8 mg/dL (0.55-1.3)
[2021-12-14] MEDS ORDERED: NAPH,MB-DB/K PH,MBDB POWDER PACKET PO ONE (22:15)
[2021-12-14] MEDS ORDERED: MAGNESIUM OXIDE 400 MG TABLET (FP) PO ONE (22:15)
[2021-12-14] MEDS ORDERED: POTASSIUM CHLORIDE TABS 20 MEQ TABLET.ER (FP) PO ONE (22:16)
[2021-12-14] MEDS ORDERED: ACETAMINOPHEN 500 MG TABLET (FP) PO ONE (22:45)
[2021-12-15] MEDS: LACTATED RINGERS SOLUTION 1,000 ML with POTASSIUM CHLORIDE 20 MEQ IV SCH (01:14)
[2021-12-15] MEDS ORDERED: LORazepam 1 MG TABLET PO SCH (05:00)
[2021-12-15] MEDS: BACLOFEN 10 MG TABLET (FP) PO SCH ×3 (05:02→21:13)
[2021-12-15] MEDS: GABAPENTIN 300 MG CAPSULE PO SCH ×3 (05:03→21:14)
[2021-12-15] MEDS: LORazepam 1 MG TABLET PO SCH ×2 (05:03→11:16)
[2021-12-15] MEDS ORDERED: ACETAMINOPHEN 1000 MG/100 ML BAG IVPB ONE (05:58)
[2021-12-15] MEDS ORDERED: DEXTROSE 5%-WATER 100 ML IVPB ONE (09:43)
[2021-12-15] MEDS: levETIRAcetam 500 MG TABLET (FP) PO SCH ×2 (09:54→21:13)
[2021-12-15] MEDS: CEFTRIAXONE 2 GM in DEXTROSE 5%-WATER 2 GM/100 ML BAG IVPB SCH (09:54)
[2021-12-15] MEDS ORDERED: LORazepam 2 MG/ML SDV VIAL IVPUSH ONE ×5 (10:29→10:45)
[2021-12-15] MEDS ORDERED: SODIUM CHLORIDE 1,000 ML IV STA ×2 (10:34→10:40)
[2021-12-15] MEDS ORDERED: levETIRAcetam 500 MG/5 ML INJECTION VIAL IVPB ONE (10:45)
[2021-12-15 11:08] LABS: HEMATOCRIT 26.4 % (35.4-49); MCHC 34.1 g/dl (32.0-35.9); MEAN CELL VOLUME 99.7 fl (80-96); MEAN PLT VOLUME 8.8 fl (7.5-11.1); PLATELET COUNT 75 10^3/uL (134-434); RBC 2.65 M/mm3 (4.00-5.60); WHITE BLOOD COUNT 3.1 K/mm3 (4.0-10.0)
[2021-12-15 11:36] LABS: ALBUMIN 2.8 g/dl (3.4-5.0)
[2021-12-15 11:39] LABS: CREATININE 0.7 mg/dL (0.55-1.3)
[2021-12-15 11:41] LABS: BILIRUBIN,TOTAL 0.6 mg/dL (0.2-1); TOT PROT 5.5 g/dl (6.4-8.2)
[2021-12-15 14:38] LABS: MAGNESIUM 1.2 mg/dL (1.8-2.4)
[2021-12-15 14:41] LABS: PHOSPHOROUS 1.4 mg/dL (2.5-4.9)
[2021-12-15] MEDS ORDERED: chlordiazePOXIDE HCL 25 MG CAPSULE PO PRN (15:44)
[2021-12-15] MEDS ORDERED: chlordiazePOXIDE HCL 10 MG CAPSULE PO PRN (16:20)
[2021-12-15] MEDS: chlordiazePOXIDE HCL 10 MG CAPSULE PO SCH ×2 (17:59→22:20)
[2021-12-15] MEDS: LORazepam 2 MG/ML SDV VIAL IVPUSH PRN (20:13)
[2021-12-16] MEDS ORDERED: LORazepam 0.5 MG TABLET PO PRN
[2021-12-16] MEDS: LORazepam 2 MG/ML SDV VIAL IVPUSH PRN (00:10)
[2021-12-16] MEDS ORDERED: LORazepam 2 MG/ML SDV VIAL IVPUSH ONE (00:37)
[2021-12-16] MEDS ORDERED: MAGNESIUM OXIDE 400 MG TABLET (FP) PO ONE (02:11)
[2021-12-16] MEDS ORDERED: NAPH,MB-DB/K PH,MBDB POWDER PACKET PO ONE (02:13)
[2021-12-16] MEDS ORDERED: MAGNESIUM 2GM/50ML STERILE WATER IVPB IVPB ONE (02:30)
[2021-12-16] MEDS ORDERED: chlordiazePOXIDE HCL 10 MG CAPSULE PO SCH (05:00)
[2021-12-16] MEDS ORDERED: LORazepam 1 MG TABLET PO SCH (05:00)
[2021-12-16] MEDS ORDERED: LORazepam 0.5 MG TABLET PO SCH (05:00)
[2021-12-16] MEDS: BACLOFEN 10 MG TABLET (FP) PO SCH ×3 (05:11→21:34)
[2021-12-16] MEDS: GABAPENTIN 300 MG CAPSULE PO SCH ×3 (05:11→21:34)
[2021-12-16] MEDS: NAPH,MB-DB/K PH,MBDB POWDER PACKET PO SCH ×3 (08:54→21:34)
[2021-12-16] MEDS ORDERED: DEXTROSE 5%-WATER 100 ML IVPB ONE (09:02)
[2021-12-16] MEDS: CEFTRIAXONE 2 GM in DEXTROSE 5%-WATER 2 GM/100 ML BAG IVPB SCH (09:32)
[2021-12-16] MEDS: levETIRAcetam 500 MG TABLET (FP) PO SCH ×2 (09:33→21:34)
[2021-12-16] MEDS: THIAMINE HCL 100 MG TABLET (FP) PO SCH (09:33)
[2021-12-16] MEDS: FOLIC ACID 1 MG TABLET (FP) PO SCH (09:33)
[2021-12-16] MEDS: CYANOCOBALAMIN 1,000 MCG TABLET (FP) PO SCH (09:33)
[2021-12-16] MEDS: chlordiazePOXIDE HCL 25 MG CAPSULE PO PRN ×2 (10:07→19:53)
[2021-12-16 10:34] LABS: HEMATOCRIT 29.8 % (35.4-49); HEMOGLOBIN 10.2 GM/dL (11.7-16.9); MCH 34.8 pg (25.7-33.7); MCHC 34.4 g/dl (32.0-35.9); MEAN CELL VOLUME 101.2 fl (80-96); PLATELET COUNT 109 10^3/uL (134-434); RBC 2.94 M/mm3 (4.00-5.60); RDW 15.2 % (11.9-15.9)
[2021-12-16 10:46] LABS: MAGNESIUM 1.6 mg/dL (1.8-2.4)
[2021-12-16 10:47] LABS: CALCIUM 8.4 mg/dL (8.5-10.1)
[2021-12-16 10:48] LABS: ALBUMIN 2.7 g/dl (3.4-5.0)
[2021-12-16 10:49] LABS: CREATININE 0.7 mg/dL (0.55-1.3)
[2021-12-16 10:50] LABS: PHOSPHOROUS 2.2 mg/dL (2.5-4.9)
[2021-12-16 10:51] LABS: TOT PROT 5.7 g/dl (6.4-8.2)
[2021-12-16 10:52] LABS: BILIRUBIN,TOTAL 0.5 mg/dL (0.2-1)
[2021-12-16] MEDS ORDERED: POTASSIUM CHLORIDE TABS 20 MEQ TABLET.ER (FP) PO ONE (11:34)
[2021-12-16] MEDS ORDERED: MAGNESIUM SULF 50% (8.12 MEQ/2 ML-1 GM VIAL) IVPB ONE (11:34)
[2021-12-16] MEDS: chlordiazePOXIDE HCL 25 MG CAPSULE PO SCH ×3 (11:45→22:11)
[2021-12-16] MEDS: SIMETHICONE 80 MG TAB.CHEW (FP) PO PRN ×2 (16:00→22:37)
[2021-12-16] MEDS: ACETAMINOPHEN 1000 MG/100 ML BAG IVPB PRN ×2 (16:57→22:53)
[2021-12-17] MEDS ORDERED: LORazepam 0.5 MG TABLET PO PRN
[2021-12-17] MEDS ORDERED: chlordiazePOXIDE HCL 10 MG CAPSULE PO ONE (05:00)
[2021-12-17] MEDS ORDERED: LORazepam 0.5 MG TABLET PO SCH (05:00)
[2021-12-17] MEDS ORDERED: LORazepam 0.5 MG TABLET PO ONE (05:00)
[2021-12-17] MEDS: NAPH,MB-DB/K PH,MBDB POWDER PACKET PO SCH ×3 (05:11→21:01)
[2021-12-17] MEDS: BACLOFEN 10 MG TABLET (FP) PO SCH ×3 (05:12→21:01)
[2021-12-17] MEDS: GABAPENTIN 300 MG CAPSULE PO SCH ×3 (05:12→21:02)
[2021-12-17] MEDS: chlordiazePOXIDE HCL 25 MG CAPSULE PO SCH (05:12)
[2021-12-17] MEDS ORDERED: IBUPROFEN 800 MG/8 ML IJ IVPB ONE (06:12)
[2021-12-17] MEDS ORDERED: DEXTROSE 5%-WATER 100 ML IVPB ONE (09:54)
[2021-12-17] MEDS: THIAMINE HCL 100 MG TABLET (FP) PO SCH (09:55)
[2021-12-17] MEDS: FOLIC ACID 1 MG TABLET (FP) PO SCH (09:56)
[2021-12-17] MEDS: CYANOCOBALAMIN 1,000 MCG TABLET (FP) PO SCH (09:56)
[2021-12-17] MEDS: levETIRAcetam 500 MG TABLET (FP) PO SCH ×2 (09:56→21:01)
[2021-12-17] MEDS: CEFTRIAXONE 2 GM in DEXTROSE 5%-WATER 2 GM/100 ML BAG IVPB SCH (09:56)
[2021-12-17] MEDS: ACETAMINOPHEN 1000 MG/100 ML BAG IVPB PRN (10:36)
[2021-12-17 10:53] LABS: BASO % 0.8 % (0-2.0); EOS % 1.3 % (0-4.5); HEMATOCRIT 28.4 % (35.4-49); HEMOGLOBIN 9.8 GM/dL (11.7-16.9); LYMPH % 25.6 % (8-40); MCH 34.9 pg (25.7-33.7); MCHC 34.4 g/dl (32.0-35.9); MEAN CELL VOLUME 101.5 fl (80-96); MONO % 12.5 % (3.8-10.2); NEUT % 59.8 % (42.8-82.8); PLATELET COUNT 118 10^3/uL (134-434); RBC 2.79 M/mm3 (4.00-5.60); RDW 15.3 % (11.9-15.9); WHITE BLOOD COUNT 3.8 K/mm3 (4.0-10.0)
[2021-12-17 10:59] LABS: BLOOD UREA NITROGEN 7.6 mg/dL (7-18); CALCIUM 7.9 mg/dL (8.5-10.1)
[2021-12-17] MEDS: chlordiazePOXIDE HCL 10 MG CAPSULE PO SCH ×3 (10:59→22:46)
[2021-12-17 11:00] LABS: MAGNESIUM 1.5 mg/dL (1.8-2.4)
[2021-12-17 11:02] LABS: CREATININE 0.7 mg/dL (0.55-1.3)
[2021-12-17 11:03] LABS: PHOSPHOROUS 3.5 mg/dL (2.5-4.9)
[2021-12-17 11:04] LABS: BILIRUBIN,TOTAL 0.5 mg/dL (0.2-1); TOT PROT 5.7 g/dl (6.4-8.2)
[2021-12-17] MEDS ORDERED: MAGNESIUM SULF 50% (8.12 MEQ/2 ML-1 GM VIAL) IVPB ONE (11:45)
[2021-12-17] MEDS: KCL 10 MEQ IVPB 10 MEQ/100 ML INFUS.BAG IVPB SCH ×3 (13:09→16:15)
[2021-12-17] MEDS: SODIUM CHLORIDE 0.9%/KCL 20 MEQ/1,000 ML INFUS.BAG IV SCH (16:57)
[2021-12-17] MEDS: chlordiazePOXIDE HCL 25 MG CAPSULE PO PRN (19:35)
[2021-12-17] MEDS: SIMETHICONE 80 MG TAB.CHEW (FP) PO PRN (21:01)
[2021-12-18] MEDS: chlordiazePOXIDE HCL 25 MG CAPSULE PO PRN ×3 (02:51→18:24)
[2021-12-18] MEDS ORDERED: LORazepam 0.5 MG TABLET PO ONE (05:00)
[2021-12-18] MEDS ORDERED: chlordiazePOXIDE HCL 25 MG CAPSULE PO SCH (05:00)
[2021-12-18] MEDS: GABAPENTIN 300 MG CAPSULE PO SCH ×3 (05:17→22:10)
[2021-12-18] MEDS: SODIUM CHLORIDE 0.9%/KCL 20 MEQ/1,000 ML INFUS.BAG IV SCH ×2 (05:17→15:30)
[2021-12-18] MEDS: BACLOFEN 10 MG TABLET (FP) PO SCH ×3 (05:17→22:10)
[2021-12-18] MEDS: NAPH,MB-DB/K PH,MBDB POWDER PACKET PO SCH ×3 (05:17→22:10)
[2021-12-18] MEDS: chlordiazePOXIDE HCL 10 MG CAPSULE PO SCH ×3 (05:18→23:18)
[2021-12-18] MEDS ORDERED: MAGNESIUM SULF 50% (8.12 MEQ/2 ML-1 GM VIAL) IVPB ONE (08:45)
[2021-12-18 08:50] LABS: BASO % 0.9 % (0-2.0); EOS % 1.2 % (0-4.5); HEMATOCRIT 27.1 % (35.4-49); LYMPH % 29.3 % (8-40); MCHC 33.2 g/dl (32.0-35.9); MEAN CELL VOLUME 102.5 fl (80-96); MEAN PLT VOLUME 9.1 fl (7.5-11.1); MONO % 17.2 % (3.8-10.2); NEUT % 51.4 % (42.8-82.8); PLATELET COUNT 135 10^3/uL (134-434); RBC 2.65 M/mm3 (4.00-5.60); RDW 15.9 % (11.9-15.9); WHITE BLOOD COUNT 3.2 K/mm3 (4.0-10.0)
[2021-12-18] MEDS ORDERED: DEXTROSE 5%-WATER 100 ML IVPB ONE (08:57)
[2021-12-18] MEDS ORDERED: POTASSIUM CHLORIDE TABS 20 MEQ TABLET.ER (FP) PO ONE (09:00)
[2021-12-18 09:15] LABS: ALBUMIN 2.5 g/dl (3.4-5.0); BLOOD UREA NITROGEN 9.2 mg/dL (7-18); CALCIUM 7.9 mg/dL (8.5-10.1)
[2021-12-18 09:16] LABS: MAGNESIUM 1.7 mg/dL (1.8-2.4)
[2021-12-18] MEDS: FOLIC ACID 1 MG TABLET (FP) PO SCH (09:17)
[2021-12-18 09:19] LABS: BILIRUBIN,TOTAL 0.4 mg/dL (0.2-1); CREATININE 0.7 mg/dL (0.55-1.3); TOT PROT 5.4 g/dl (6.4-8.2)
[2021-12-18] MEDS: CYANOCOBALAMIN 1,000 MCG TABLET (FP) PO SCH (09:22)
[2021-12-18] MEDS: THIAMINE HCL 100 MG TABLET (FP) PO SCH (09:22)
[2021-12-18] MEDS: levETIRAcetam 500 MG TABLET (FP) PO SCH ×2 (09:22→22:10)
[2021-12-18] MEDS ORDERED: LOPERAMIDE HCL 2 MG CAPSULE PO ONE (10:27)
[2021-12-18] MEDS: CEFTRIAXONE 2 GM in DEXTROSE 5%-WATER 2 GM/100 ML BAG IVPB SCH (12:12)
[2021-12-18] MEDS ORDERED: chlordiazePOXIDE HCL 10 MG CAPSULE PO SCH (23:15)
[2021-12-19] MEDS ORDERED: chlordiazePOXIDE HCL 10 MG CAPSULE PO PRN
[2021-12-19] MEDS ORDERED: ACETAMINOPHEN 1000 MG/100 ML BAG IVPB ONE (01:42)
[2021-12-19] MEDS: MELATONIN 5 MG TABLETS PO SCH ×2 (02:00→21:55)
[2021-12-19] MEDS ORDERED: chlordiazePOXIDE HCL 10 MG CAPSULE PO SCH (05:00)
[2021-12-19] MEDS: GABAPENTIN 300 MG CAPSULE PO SCH ×3 (06:13→21:56)
[2021-12-19] MEDS: NAPH,MB-DB/K PH,MBDB POWDER PACKET PO SCH ×3 (06:13→21:56)
[2021-12-19] MEDS: BACLOFEN 10 MG TABLET (FP) PO SCH ×3 (06:13→21:55)
[2021-12-19] MEDS ORDERED: DEXTROSE 5%-WATER 100 ML IVPB ONE (09:52)
[2021-12-19] MEDS: THIAMINE HCL 100 MG TABLET (FP) PO SCH (10:28)
[2021-12-19] MEDS: levETIRAcetam 500 MG TABLET (FP) PO SCH ×2 (10:28→21:55)
[2021-12-19] MEDS: FOLIC ACID 1 MG TABLET (FP) PO SCH (10:31)
[2021-12-19] MEDS: CYANOCOBALAMIN 1,000 MCG TABLET (FP) PO SCH (10:31)
[2021-12-19] MEDS: CEFTRIAXONE 2 GM in DEXTROSE 5%-WATER 2 GM/100 ML BAG IVPB SCH (10:32)
[2021-12-19] MEDS ORDERED: chlordiazePOXIDE HCL 10 MG CAPSULE PO ONE (11:00)
[2021-12-19] MEDS ORDERED: LORazepam 2 MG/ML SDV VIAL IVPUSH ONE (11:30)
[2021-12-19] MEDS ORDERED: levETIRAcetam 500 MG TABLET (FP) PO ONE (12:01)
[2021-12-19] MEDS ORDERED: ACETAMINOPHEN 325 MG TABLET (FP) PO PRN (12:14)
[2021-12-19] MEDS: SODIUM CHLORIDE 0.9%/KCL 20 MEQ/1,000 ML INFUS.BAG IV SCH (18:44)
[2021-12-19] MEDS: THIAMINE HCL 200 MG/2 ML VIAL IVPB SCH (18:48)
[2021-12-19] MEDS ORDERED: LORazepam 1 MG TABLET PO ONE (20:20)
[2021-12-19] MEDS: PRAMIPEXOLE DIHYDROCHLORIDE 0.25 MG TABLET PO SCH (21:55)
[2021-12-19] MEDS ORDERED: levETIRAcetam 500 MG TABLET (FP) PO SCH (22:00)
[2021-12-19] MEDS: DIVALPROEX NA *ER* EXTEND REL 500 MG TABLET.SA (FP) PO SCH (22:00)
[2021-12-19] MEDS: buPROPion HCL 75 MG TABLET PO SCH (22:01)
[2021-12-20] MEDS ORDERED: chlordiazePOXIDE HCL 10 MG CAPSULE PO SCH (05:00)
[2021-12-20] MEDS: NAPH,MB-DB/K PH,MBDB POWDER PACKET PO SCH ×2 (06:16→13:55)
[2021-12-20] MEDS: GABAPENTIN 300 MG CAPSULE PO SCH ×2 (06:16→13:58)
[2021-12-20] MEDS: BACLOFEN 10 MG TABLET (FP) PO SCH ×2 (06:16→13:55)
[2021-12-20] MEDS: FOLIC ACID 1 MG TABLET (FP) PO SCH (09:50)
[2021-12-20] MEDS: PRAMIPEXOLE DIHYDROCHLORIDE 0.25 MG TABLET PO SCH (09:50)
[2021-12-20] MEDS: levETIRAcetam 500 MG TABLET (FP) PO SCH (09:50)
[2021-12-20] MEDS: CYANOCOBALAMIN 1,000 MCG TABLET (FP) PO SCH (09:50)
[2021-12-20] MEDS: buPROPion HCL 75 MG TABLET PO SCH (09:51)
[2021-12-20] MEDS: DIVALPROEX NA *ER* EXTEND REL 500 MG TABLET.SA (FP) PO SCH (09:54)
[2021-12-20 11:05] LABS: HEMATOCRIT 28.5 % (35.4-49); HEMOGLOBIN 9.6 GM/dL (11.7-16.9); MCH 34.5 pg (25.7-33.7); MCHC 33.7 g/dl (32.0-35.9); MEAN CELL VOLUME 102.6 fl (80-96); MEAN PLT VOLUME 8.6 fl (7.5-11.1); PLATELET COUNT 185 10^3/uL (134-434); RBC 2.78 M/mm3 (4.00-5.60); RDW 15.7 % (11.9-15.9); WHITE BLOOD COUNT 3.5 K/mm3 (4.0-10.0)
[2021-12-20 11:31] LABS: CALCIUM 8.6 mg/dL (8.5-10.1); MAGNESIUM 1.6 mg/dL (1.8-2.4)
[2021-12-20 11:32] LABS: BLOOD UREA NITROGEN 9.4 mg/dL (7-18)
[2021-12-20 11:34] LABS: CREATININE 0.7 mg/dL (0.55-1.3); PHOSPHOROUS 3.3 mg/dL (2.5-4.9)
[2021-12-20 11:35] LABS: BILIRUBIN,TOTAL 0.4 mg/dL (0.2-1)
[2021-12-20 11:36] LABS: TOT PROT 6.3 g/dl (6.4-8.2)
[2021-12-20] MEDS: THIAMINE HCL 200 MG/2 ML VIAL IVPB SCH (12:32)
[2021-12-20 15:49] VITALS: BP 126/89; PULSE 98; TEMP 97.8
[2021-12-21] MEDS ORDERED: chlordiazePOXIDE HCL 10 MG CAPSULE PO ONE (05:00)
== END 2021-12-20 18:39 | disposition home or self-care (01) | DRG 775 ==
LOC: JER 12:44 → JERBED 17:09 → J5S 12-14 00:27
PROVIDERS: ADMIT Internal Medicine; ATTEND Internal Medicine
PROC: HZ2ZZZZ Detoxification Services for Substance Abuse Treatment (ICD-10-PCS; principal; 2021-12-13)
DX: F10.239 Alcohol dependence with withdrawal, unspecified (principal); K55.9 Vascular disorder of intestine, unspecified; K85.20 Alcohol induced acute pancreatitis without necrosis or infection; D61.818 Other pancytopenia; E87.6 Hypokalemia; E87.2 Acidosis; E83.42 Hypomagnesemia; G40.409 Other generalized epilepsy and epileptic syndromes, not intractable, without status epilepticus; K83.8 Other specified diseases of biliary tract; R74.01 Elevation of levels of liver transaminase levels; K86.1 Other chronic pancreatitis; E83.39 Other disorders of phosphorus metabolism; R11.2 Nausea with vomiting, unspecified; D72.829 Elevated white blood cell count, unspecified; A09 Infectious gastroenteritis and colitis, unspecified; M54.30 Sciatica, unspecified side; G25.81 Restless legs syndrome
CPT/HCPCS: 36415; 70450-TC; 74019-TC-FY; 74177-TC; 74178-TC; 76705-TC; 80048; 80053; 80177; 80307; 81003; 82140; 82150; 82248; 82550; 82607; 82728; 82962; 83010; 83036; 83540; 83550; 83605; 83615; 83690; 83735; 84100; 84443; 84478; 84484; 85025; 85027; 85045; 85610; 85730; 86038; 87040; 87045; 87046; 87086; 87177; 87186; 87209; 87324; 87389; 87449; 93005; 93010; 97116-GP; 97162-GP; 99285-25; C9803-CS; J0475; Q9967; U0003; U0005